=== PATIENT | male | born 1970 | race Caucasian/White ===

== ENCOUNTER 2021-10-13 11:02 | Emergency (ER) | payer SELFPAY ==
[2021-10-13] MEDS ORDERED: DIAZEPAM 5 MG TABLET ONE (11:40)
[2021-10-13] MEDS ORDERED: HYDROCODONE/APAP 5/325 MG TAB ONE (11:41)
--- NOTE | 2021-10-13 13:01 | EDPHYS ---
Physician Documentation [facility] Name: Talha Bell Age: 51 yrs Sex: Male : 1970 Arrival Date: 10/13/2021 Time: 11:03 Bed Waiting Private MD: ED Physician Arsenio Chaidez HPI: 10/13 11:34 This 51 yrs old Male presents to ER via Ambulatory with complaints of Back Pain. ms3 11:34 The patient presents with pain that is chronic. The symptoms are located in the low ms3 back. Onset: The symptoms/episode began/occurred 20 year(s) ago. The pain does not radiate. Associated signs and symptoms: Pertinent negatives: incontinence. The problem was sustained when bending over. Modifying factors: The patient symptoms are alleviated by nothing, the patient symptoms are aggravated by any movement. Severity of symptoms: At their worst the symptoms were moderate, in the emergency department the symptoms are unchanged. 51-year-old male with past medical history of chronic back pain presents for worsening of his chronic back pain. Patient states his pain is going on his right leg and he was sent home from work. Patient states his pain became worse after bending over to move a pallet at work. Patient states his pain is currently 5/10 and described as burning. Patient denies bowel or bladder incontinence, or saddle anesthesia. Historical: - Allergies: 11:34 No Known Allergies; ph - PMHx: 11:34 None; ph - Immunization history:: Adult Immunizations up to date. - Social history:: Smoking status: Patient reports the use of cigarette tobacco products, smokes two packs cigarettes per day. ROS: 11:34 Constitutional: Negative for fever, and chills. Eyes: Negative for injury, pain, ms3 redness, and discharge, ENT: Negative for injury, pain, and discharge, Neck: Negative for injury, pain, and swelling, Cardiovascular: Negative for chest pain, and palpitations. Respiratory: Negative for shortness of breath, cough, wheezing, and pleuritic chest pain, Abdomen/GI: Negative for abdominal pain, nausea, vomiting, diarrhea, and constipation, Skin: Negative for injury, rash, and discoloration, Allergy/Immunology: Negative for hives, rash, and allergies, Hematologic/Lymphatic: Negative for swollen nodes, abnormal bleeding, and unusual bruising. 11:34 Back: Positive for pain with movement. 11:34 All other systems are negative. Exam: 11:34 Constitutional: This is a well developed, well nourished patient who is awake, alert, ms3 and in no acute distress. Head/Face: Normocephalic, atraumatic. Eyes: Pupils equal round and reactive to light, extra-ocular motions intact. Lids and lashes normal. Conjunctiva and sclera are non-icteric and not injected. Periorbital areas with no swelling, redness, or edema. Neck: Trachea midline, no cervical lymphadenopathy. Supple, full range of motion without nuchal rigidity, or vertebral point tenderness. No Meningismus. Chest/axilla: Normal chest wall appearance and motion. Nontender with no deformity. Cardiovascular: Regular rate and rhythm with a normal S1 and S2. No gallops, murmurs, or rubs. Normal PMI, no JVD. No pulse deficits. Respiratory: Lungs have equal breath sounds bilaterally, clear to auscultation and percussion. No rales, rhonchi or wheezes noted. No increased work of breathing, no retractions or nasal flaring. Abdomen/GI: Soft, non-tender, with normal bowel sounds. No distension or tympany. No guarding or rebound. No evidence of tenderness throughout. Skin: Warm, dry with normal turgor. Normal color with no rashes, no lesions, and no evidence of cellulitis. MS/ Extremity: Pulses equal, no cyanosis. Neurovascular intact. Full, normal range of motion. Neuro: Awake and alert, GCS 15, oriented to person, place, time, and situation. Cranial nerves II-XII grossly intact. Motor strength 5/5 in all extremities. Sensory grossly intact. Cerebellar exam normal. Normal gait. Psych: Awake, alert, with orientation to person, place and time. Behavior, mood, and affect are within normal limits. 11:34 Back: pain, that is moderate, ROM is normal, normal spinal alignment noted, CVA tenderness, is absent, vertebral tenderness, is not appreciated, muscle spasm, is appreciated in the right low back. Vital Signs: 11:32 BP 147 / 98; Pulse 86; Resp 18; Temp 97.8; Pulse Ox 100% on R/A; Weight 113.4 kg; ph Height 5 ft. 9 in. (175.26 cm); Pain 5/10; 13:05 BP 132 / 87; Pulse 79; Resp 18; Temp 97.8; Pulse Ox 100% on R/A; ph 11:32 Body Mass Index 36.92 (113.40 kg, 175.26 cm) ph MDM: 11:34 Differential diagnosis: Muscle spasm vs Sciatica vs DDD. ms3 13:00 Patient medically screened. ms3 17:47 Data reviewed: vital signs, nurses notes. Data interpreted: Pulse oximetry: on room air ms3 is 100 %. Interpretation: normal. Counseling: I had a detailed discussion with the patient and/or guardian regarding: the historical points, exam findings, and any diagnostic results supporting the discharge/admit diagnosis, the need for outpatient follow up, to return to the emergency department if symptoms worsen or persist or if there are any questions or concerns that arise at home. ED course: Patient's pain improved after Ranger and Valium. Patient is ambulatory in the emergency department, alert and orient x4, no apparent distress, nontoxic-appearing, without bowel or bladder incontinence. Patient to follow-up with primary care physician as discussed. All questions were answered. Return precautions discussed include worsening symptoms, or any other concerns.. Administered Medications: 11:38 Drug: HYDROcodone-acetaminophen 5 mg-325 mg 1 tabs Route: PO; ph 13:05 Follow up: Response: No adverse reaction ph 11:38 Drug: Valium (diazepam) 5 mg Route: PO; ph 13:05 Follow up: Response: No adverse reaction ph Disposition Summary: 10/13/21 13:00 Discharge Ordered Location: Home ms3 Condition: Stable ms3 Diagnosis - Low back pain ms3 - Muscle spasm of back ms3 Followup: ms3 - With: Hansel Bazzi MD - When: 2 - 3 days - Reason: Discharge Instructions: - Discharge Summary Sheet ms3 - Acute Back Pain, Adult ms3 Forms: - Medication Reconciliation Form ms3 - Work release form ph - Thank You Letter ms3 - Antibiotic Education ms3 - Prescription Opioid Use ms3 Prescriptions: - Cyclobenzaprine 10 mg Oral Tablet - take 1 tablet by ORAL route every 8 hours As needed; 30 tablet; Refills: 0, ms3 Product Selection Permitted - Ibuprofen 600 mg Oral Tablet - take 1 tablet by ORAL route every 6 hours As needed take with food; 30 tablet; ms3 Refills: 0, Product Selection Permitted Signatures: Jenny Iglesias, RN RN ph Arsenio Chaidez, DO DO ms3
--- NOTE | 2021-10-13 13:01 | ER ---
Nurse's Notes [facility] Name: Talha Bell Age: 51 yrs Sex: Male : 1970 Arrival Date: 10/13/2021 Time: 11:03 Bed Waiting Private MD: Diagnosis: Low back pain;Muscle spasm of back Presentation: 10/13 11:32 Chief complaint: Patient states: Low back pain radiates to R leg, hx of back pain x ph "about 20 years.", worse today. was sent home from work, took motrin [employer]. Coronavirus screen: Vaccine status: Patient reports receiving the 2nd dose of the covid vaccine. Ebola Screen: No symptoms or risks identified at this time. Initial Sepsis Screen: Does the patient meet any 2 criteria? No. Patient's initial sepsis screen is negative. Does the patient have a suspected source of infection? No. Patient's initial sepsis screen is negative. Risk Assessment: Do you want to hurt yourself or someone else? Patient reports no desire to harm self or others. Onset of symptoms was October 13, 2021. 11:32 Method Of Arrival: Ambulatory ph 11:32 Acuity: TRE 4 ph Triage Assessment: 11:38 General: Appears in no apparent distress. comfortable, Behavior is calm, cooperative, ph appropriate for age. Pain: Complains of pain in right low back Pain radiates to right leg. Neuro: Level of Consciousness is awake, alert, obeys commands, Oriented to person, place, time, situation. Respiratory: No deficits noted. Musculoskeletal: Circulation, motion, and sensation intact. Range of motion: intact in all extremities. Historical: - Allergies: 11:34 No Known Allergies; ph - PMHx: 11:34 None; ph - Immunization history:: Adult Immunizations up to date. - Social history:: Smoking status: Patient reports the use of cigarette tobacco products, smokes two packs cigarettes per day. Screenin:10 Abuse screen: Denies threats or abuse. Denies injuries from another. Nutritional ph screening: No deficits noted. Tuberculosis screening: No symptoms or risk factors identified. Fall Risk None identified. Assessment: 11:39 Reassessment: Pt medicated in triage and -placed back into lobby. General: SEE TRIAGE ph NOTE. Vital Signs: 11:32 BP 147 / 98; Pulse 86; Resp 18; Temp 97.8; Pulse Ox 100% on R/A; Weight 113.4 kg; ph Height 5 ft. 9 in. (175.26 cm); Pain 5/10; 13:05 BP 132 / 87; Pulse 79; Resp 18; Temp 97.8; Pulse Ox 100% on R/A; ph 11:32 Body Mass Index 36.92 (113.40 kg, 175.26 cm) ph ED Course: 11:03 Patient arrived in ED. mr 11:25 Arsenio Chaidez DO is Attending Physician. ms3 11:34 Triage completed. ph 11:34 Arm band placed on Patient placed in waiting room, Patient notified of wait time. ph 11:39 Jenny Iglesias RN is Primary Nurse. ph 12:59 Hansel Bazzi MD is Referral Physician. ms3 13:10 Patient has correct armband on for positive identification. ph 13:11 No provider procedures requiring assistance completed. Patient did not have IV access ph during this emergency room visit. Administered Medications: 11:38 Drug: HYDROcodone-acetaminophen 5 mg-325 mg 1 tabs Route: PO; ph 13:05 Follow up: Response: No adverse reaction ph 11:38 Drug: Valium (diazepam) 5 mg Route: PO; ph 13:05 Follow up: Response: No adverse reaction ph Outcome: 13:00 Discharge ordered by . ms3 13:11 Patient left the ED. ph 13:11 Discharged to home ambulatory. ph 13:11 Condition: good 13:11 Discharge instructions given to patient, Instructed on discharge instructions, follow up and referral plans. medication usage, Demonstrated understanding of instructions, follow-up care, medications, Prescriptions given X 2. Signatures: Shahida Calvillo mr Jenny Iglesias RN RN Arsenio Chaidez DO DO ms3
[2021-10-13 13:19] VITALS: BP 147/98; TEMP 97.8; O2SAT 100
== END 2021-10-13 13:11 | disposition home or self-care (01) ==
LOC: ER 11:02
DX: M62.830 Muscle spasm of back (principal); F17.210 Nicotine dependence, cigarettes, uncomplicated
CPT/HCPCS: 99283

== ENCOUNTER 2023-01-28 02:33 | Emergency (ER) | payer SELFPAY ==
--- NOTE | 2023-01-28 02:52 | ER ---
Nurse's Notes [facility] Name: Talha Bell Age: 52 yrs Sex: Male : 1970 Arrival Date: 01/28/2023 Time: 02:33 Bed 7 Private MD: Diagnosis: Lumbago with sciatica, right side;Elevated blood-pressure reading, without diagnosis of hypertension Presentation: 01/28 02:44 Chief complaint: Patient states: "I'm having lower back pain. It usually flares up once vc1 a year. I wasn't going to come in but my boss was afraid I would hurt myself.". Coronavirus screen: Vaccine status: Patient reports receiving the 2nd dose of the covid vaccine. [employer] Client denies travel out of the [place] in the last 14 days. At this time, the client does not indicate any symptoms associated with coronavirus-19. Ebola Screen: Patient negative for fever greater than or equal to 101.5 degrees Fahrenheit, and additional compatible Ebola Virus Disease symptoms Patient denies exposure to infectious person. Patient denies travel to an Ebola-affected area in the 21 days before illness onset. No symptoms or risks identified at this time. Initial Sepsis Screen: Does the patient meet any 2 criteria? HR > 90 bpm. No. Patient's initial sepsis screen is negative. Does the patient have a suspected source of infection? No. Patient's initial sepsis screen is negative. Risk Assessment: Do you want to hurt yourself or someone else? Patient reports no desire to harm self or others. Onset of symptoms was January 25, 2023. 02:44 Method Of Arrival: Ambulatory vc1 02:44 Acuity: TRE 3 vc1 Triage Assessment: 02:46 General: Appears in no apparent distress. comfortable, Behavior is calm, cooperative, vc1 appropriate for age. Pain: Complains of pain in low back area Pain does not radiate. Pain currently is 0 out of 10 on a pain scale. at worst was 8 out of 10 on a pain scale. Quality of pain is described as sharp, Aggravated by going from sitting to standing, bending. EENT: No deficits noted. No signs and/or symptoms were reported regarding the EENT system. Neuro: Level of Consciousness is awake, alert, obeys commands, Oriented to person, place, time, situation, Appropriate for age. Cardiovascular: No deficits noted. Respiratory: Airway is patent Respiratory effort is even, unlabored, Respiratory pattern is regular, symmetrical. GI: No deficits noted. No signs and/or symptoms were reported involving the gastrointestinal system. : No deficits noted. No signs and/or symptoms were reported regarding the genitourinary system. Derm: No deficits noted. No signs and/or symptoms reported regarding the dermatologic system. Musculoskeletal: Reports pain in low back area. Historical: - Allergies: 02:46 PENICILLINS; vc1 - Home Meds: 02:46 None [Active]; vc1 - PMHx: 02:46 None; vc1 - PSHx: 02:46 None; vc1 - Immunization history:: Client reports receiving the 2nd dose of the Covid vaccine. - Social history:: Smoking status: Patient reports the use of cigarette tobacco products, smokes one pack cigarettes per day. Screenin:47 Abuse screen: Denies threats or abuse. Nutritional screening: No deficits noted. vc1 Tuberculosis screening: No symptoms or risk factors identified. 02:58 [facility] ED Fall Risk Assessment (Adult) History of falling in the last 3 months, jw7 including since admission No falls in past 3 months (0 pts) Score/Fall Risk Level 0 - 2 = Low Risk. Vital Signs: 02:44 BP 141 / 99; Pulse 97; Resp 17; Temp 97.7; Pulse Ox 100% ; Weight 104.33 kg; Height 5 vc1 ft. 9 in. ; Pain 0/10; 02:44 Body Mass Index 33.96 (104.33 kg, 175.26 cm) vc1 02:44 Pain Scale: Adult vc1 ED Course: 02:35 Patient arrived in ED. am2 02:38 Dawn Mckinley, KAY is Primary Nurse. kd3 02:40 Elisabeth Muhammad FNP-C is PHCP. rt 02:46 Triage completed. vc1 02:47 Patient has correct armband on for positive identification. Bed in low position. Call vc1 light in reach. Pulse ox on. NIBP on. 02:50 Elisabeth Muhammad FNP-C is PHCP. snw 02:50 Sloan Robison MD is Attending Physician. snw 02:57 No provider procedures requiring assistance completed. Patient did not have IV access jw7 during this emergency room visit. 02:58 Arm band placed on. jw7 03:03 Provided Education on: discharge instructions, medications, and follow up care. jw7 Administered Medications: 02:53 Drug: Ketorolac IM 30 mg Route: IM; Site: right deltoid; jw7 03:08 Follow up: Response: No adverse reaction jw7 02:53 Drug: Diazepam PO 10 mg Route: PO; jw7 03:08 Follow up: Response: No adverse reaction jw7 Medication: 02:48 VIS not applicable for this client. vc1 Outcome: 02:52 Discharge ordered by . snw 02:58 Discharged to home ambulatory, with family. jw7 02:58 Condition: stable 03:02 Discharge instructions given to patient, Instructed on discharge instructions, follow jw7 up and referral plans. medication usage, Demonstrated understanding of instructions, follow-up care, medications, Prescriptions given X 2. 03:07 Patient left the ED. jw7 Signatures: Elisabeth Muhammad, TIMERS INSPECTOR-C TIMERS INSPECTOR-Csnw Reanna Mcpherson am2 Dawn Mckinley RN RN kd3 Betina Doss RN RN vc1 Cyndy Saleh RN RN jw7 Sloan Robison MD MD rt
--- NOTE | 2023-01-28 02:52 | EDPHYS ---
Physician Documentation [facility] Name: Talha Bell Age: 52 yrs Sex: Male : 1970 Arrival Date: 01/28/2023 Time: 02:33 Bed 7 Private MD: ED Physician Sloan Robison HPI: 01/28 02:46 This 52 yrs old Male presents to ER via Ambulatory with complaints of Low Back Pain. snw 02:46 The patient presents with pain that is acute, with no known mechanism of injury. The snw symptoms are located in the low back. The pain radiates to the right hip, lateral aspect of right thigh, right gluteal fold and right hamstring. The problem was sustained from unknown cause. Onset: The symptoms/episode began/occurred "once a year for 30 years". Associated signs and symptoms: Pertinent positives: tingling, to right hip and posterior thigh. The patient has experienced similar episodes in the past. The patient has not recently seen a physician. Historical: - Allergies: 02:46 PENICILLINS; vc1 - Home Meds: 02:46 None [Active]; vc1 - PMHx: 02:46 None; vc1 - PSHx: 02:46 None; vc1 - Immunization history:: Client reports receiving the 2nd dose of the Covid vaccine. - Social history:: Smoking status: Patient reports the use of cigarette tobacco products, smokes one pack cigarettes per day. ROS: 02:45 Constitutional: Negative for fever, chills, and weight loss, Eyes: Negative for injury, snw pain, redness, and discharge, ENT: Negative for injury, pain, and discharge, Neck: Negative for injury, pain, and swelling, Cardiovascular: Negative for chest pain, palpitations, and edema, Respiratory: Negative for shortness of breath, cough, wheezing, and pleuritic chest pain, Abdomen/GI: Negative for abdominal pain, nausea, vomiting, diarrhea, and constipation, : Negative for injury, bleeding, discharge, and swelling, MS/Extremity: Negative for injury and deformity, Skin: Negative for injury, rash, and discoloration, Neuro: Negative for headache, weakness, numbness, tingling, and seizure, Psych: Negative for depression, anxiety, suicide ideation, homicidal ideation, and hallucinations. 02:45 Back: Positive for pain at rest, pain with movement, radiated pain, of the low back area. Exam: 02:44 Constitutional: This is a well developed, well nourished patient who is awake, alert, snw and in no acute distress. Head/Face: Normocephalic, atraumatic. Eyes: Pupils equal round and reactive to light, extra-ocular motions intact. Lids and lashes normal. Conjunctiva and sclera are non-icteric and not injected. Cornea within normal limits. Periorbital areas with no swelling, redness, or edema. ENT: Nares patent. No nasal discharge, no septal abnormalities noted. Tympanic membranes are normal and external auditory canals are clear. Oropharynx with no redness, swelling, or masses, exudates, or evidence of obstruction, uvula midline. Mucous membranes moist. Neck: Trachea midline, no thyromegaly or masses palpated, and no cervical lymphadenopathy. Supple, full range of motion without nuchal rigidity, or vertebral point tenderness. No Meningismus. Chest/axilla: Normal chest wall appearance and motion. Nontender with no deformity. No lesions are appreciated. Cardiovascular: Regular rate and rhythm with a normal S1 and S2. No gallops, murmurs, or rubs. Normal PMI, no JVD. No pulse deficits. Respiratory: Lungs have equal breath sounds bilaterally, clear to auscultation and percussion. No rales, rhonchi or wheezes noted. No increased work of breathing, no retractions or nasal flaring. Abdomen/GI: Soft, non-tender, with normal bowel sounds. No distension or tympany. No guarding or rebound. No evidence of tenderness throughout. 02:44 Skin: Warm, dry with normal turgor. Normal color with no rashes, no lesions, and no evidence of cellulitis. MS/ Extremity: Pulses equal, no cyanosis. Neurovascular intact. Full, normal range of motion. Psych: Awake, alert, with orientation to person, place and time. Behavior, mood, and affect are within normal limits. 02:44 Back: ROM is painful, vertebral tenderness, is not appreciated, muscle spasm, is appreciated in the low back area. 02:44 Neuro: Orientation: is normal, Gait: limited by pain, limping, mild decreased sensation to right lateral hip. seizure activity, is not displayed by the patient, Abnormal movements: there are no abnormal movements. Vital Signs: 02:44 BP 141 / 99; Pulse 97; Resp 17; Temp 97.7; Pulse Ox 100% ; Weight 104.33 kg; Height 5 vc1 ft. 9 in. ; Pain 0/10; 02:44 Body Mass Index 33.96 (104.33 kg, 175.26 cm) vc1 02:44 Pain Scale: Adult vc1 MDM: 02:36 Patient medically screened. snw 02:47 Differential diagnosis: arthritis, strain, fracture, sciatica, Herniated disc. Data snw reviewed: vital signs, nurses notes. I considered the following discharge prescriptions or medication management in the emergency department Medications were administered in the Emergency Department. See MAR. Historians other than the Patient: Spouse/Significant Other: . Counseling: I had a detailed discussion with the patient and/or guardian regarding: the historical points, exam findings, and any diagnostic results supporting the discharge/admit diagnosis, the presence of at least one elevated blood pressure reading (>120/80) during this emergency department visit, the need for outpatient follow up, for definitive care, to return to the emergency department if symptoms worsen or persist or if there are any questions or concerns that arise at home. Special discussion: I have referred the patient to see his PCP for further evaluation of high blood pressure. Based on the history and exam findings, there is no indication for further emergent testing or inpatient evaluation. I discussed with the patient/guardian the need to see the back specialist for further evaluation of the symptoms. I discussed with the patient/guardian the need to see the primary care provider for further evaluation of the symptoms. Administered Medications: 02:53 Drug: Ketorolac IM 30 mg Route: IM; Site: right deltoid; jw7 03:08 Follow up: Response: No adverse reaction jw7 02:53 Drug: Diazepam PO 10 mg Route: PO; jw7 03:08 Follow up: Response: No adverse reaction jw7 Disposition: 03:47 Co-signature as Attending Physician, Sloan Robison MD I reviewed the patient's care rt provided by the Advanced Practice Provider and agree with the diagnosis and treatment plan. Disposition Summary: 01/28/23 02:52 Discharge Ordered Location: Home snw Condition: Stable snw Diagnosis - Lumbago with sciatica, right side snw - Elevated blood-pressure reading, without diagnosis of hypertension snw Followup: snw - With: Emergency Department - When: As needed - Reason: Worsening of condition Followup: snw - With: Private Physician - When: 2 - 3 days - Reason: Recheck today's complaints, Continuance of care, Re-evaluation by your physician Discharge Instructions: - Discharge Summary Sheet snw - Acute Back Pain, Adult snw - Sciatica snw - Steps to Quit Smoking snw - Health Risks of Smoking snw - Back Injury Prevention, [id number] snw - Back Exercises, [id number] snw - DASH Eating Plan snw - Form - Blood Pressure Record Sheet snw - Managing the Challenge of Quitting Smoking snw - How to Take Your Blood Pressure snw - Low Back Sprain or Strain Rehab snw - Smoking and Musculoskeletal Health snw Forms: - Work release form snw - Medication Reconciliation Form snw - Thank You Letter snw - Antibiotic Education snw - Prescription Opioid Use snw - Patient Portal Instructions snw Prescriptions: - Mobic 7.5 mg Oral Tablet - take 1 tablet by ORAL route once daily take with food; 20 tablet; Refills: 0, snw Product Selection Permitted - orphenadrine citrate 100 mg Oral Tablet Sustained Release - take 1 tablet by ORAL route 2 times per day As needed; 20 tablet; Refills: 0, snw Product Selection Permitted Signatures: Elisabeth Muhammad FNP-C SILVER [employer]AY WORKER-Csnw Betina Doss, RN RN vc1 Cyndy Saleh, RN RN jw7 Sloan Robison MD MD rt
[2023-01-28] MEDS ORDERED: DIAZEPAM 5 MG TABLET ONE (02:55)
[2023-01-28] MEDS ORDERED: KETOROLAC 30 MG/ML INJ ONE (02:55)
[2023-01-28 03:13] VITALS: BP 141/99; TEMP 97.7; O2SAT 100
== END 2023-01-28 03:07 | disposition home or self-care (01) ==
LOC: ER 02:33
DX: M54.41 Lumbago with sciatica, right side (principal); R03.0 Elevated blood-pressure reading, without diagnosis of hypertension; F17.210 Nicotine dependence, cigarettes, uncomplicated
CPT/HCPCS: 96372; 99284